=== PATIENT | male | born 1950 ===

== ENCOUNTER 2021-04-08 09:49 | Inpatient (IN) | payer MEDICAID, MEDICARE ==
[2021-04-08] MEDS ORDERED: ONDANSETRON 4 MG/2 ML VIAL IVP PRN (10:20)
[2021-04-08] MEDS ORDERED: MORPHINE SULFATE 2 MG/ML SYRINGE IV PRN (10:20)
[2021-04-08] MEDS ORDERED: MORPHINE SULFATE (100 MG/2 ML) 100 MG in SODIUM CHLORIDE 0.9% 100 ML IV SCH (10:30)
[2021-04-08 13:42] VITALS: BP 110/76; RESP 30; TEMP 101.8
[2021-04-08] MEDS: LORazepam 2 MG/ML INJ IV SCH ×5 (13:48→20:12)
[2021-04-08] MEDS: PHENobarbital SODIUM 130 MG/ML 1 ML VIAL IM SCH ×2 (14:07→17:30)
[2021-04-08 19:46] VITALS: PULSE 140
[2021-04-08] MEDS ORDERED: PHENobarbital SODIUM 130 MG/ML 1 ML VIAL IM SCH (20:00)
--- NOTE | 2021-04-12 21:04 | P.DS ---
Providers Date of admission: 04/08/21 13:12 Expected date of discharge: 04/08/21 Attending physician: Gokul Membreno Primary care physician: Vicente Voss [facility] Course: Hospital course: Patient admitted for comfort measures. Patient Cause of : Metastatic lung cancer Plan - Discharge Summary Discharge Rx Participant: No Discharge Disposition: - Preliminary Cause of Preliminary Cause of : Metastatic lung cancer
--- NOTE | 2021-04-12 21:05 | P.HPIM ---
History of Present Illness H&P Date: 04/08/21 Patient admitted for comfort measures. Comfort care orders. Admitting diagnosis: Metastatic lung cancer for symptom control. Past Medical History Additional Past Medical History / Comment(s): Patient unable to answer questions r/t History. Family at bedside are able to verify cancer diagnosis. Small Cell Lung Cancer diagnosed Jan 2021. Metastatic process involving brain and 40+ tumors throughout his body. History of Any Multi-Drug Resistant Organisms: None Reported Past Surgical History: Orthopedic Surgery Additional Past Surgical History / Comment(s): Left shoulder surgery Past Anesthesia/Blood Transfusion Reactions: No Reported Reaction Past Psychological History: No Psychological Hx Reported Smoking Status: Former smoker Past Alcohol Use History: None Reported Additional Past Alcohol Use History / Comment(s): Occasional alcohol consumption. - Past Family History Mother Family Medical History: Vascular Disorder Additional Family Medical History / Comment(s): AAA rupture Father Family Medical History: Diabetes Mellitus Additional Family Medical History / Comment(s): Hx. of Colon Cancer Medications and Allergies Allergies Allergy/AdvReac Type Severity Reaction Status Date / Time No Known Allergies Allergy Verified 04/08/21 10:12 Thrombosis Risk Factor Assmnt - Choose All That Apply Each Risk Factor Represents 2 Points: Age 61-74 years, Malignancy Thrombosis Risk Factor Assessment Total Risk Factor Score: 4 Thrombosis Risk Factor Assessment Level: Moderate Risk
== END 2021-04-08 21:30 | disposition expired | DRG 951 ==
LOC: 5NMEDONC 13:12
PROVIDERS: ADMIT Hospitalist; ATTEND Hospitalist
DX: Z51.5 Encounter for palliative care (principal); C34.90 Malignant neoplasm of unspecified part of unspecified bronchus or lung; C79.9 Secondary malignant neoplasm of unspecified site; C79.31 Secondary malignant neoplasm of brain; Z83.3 Family history of diabetes mellitus; Z87.891 Personal history of nicotine dependence
CPT/HCPCS: 87635